=== PATIENT | male | born 2005 | race African-American/Black ===

== ENCOUNTER → 2024-11-08 10:17 | Outpatient (BNVA) | payer OTHER, SELFPAY | PROVIDERS: Visit Provider Physician Assistant Medical | DX: S80.01XA Contusion of right knee, initial encounter (principal); S60.414A Abrasion of right ring finger, initial encounter; Y00.XXXA Assault by blunt object, initial encounter | CPT/HCPCS: 99202 ==

== ENCOUNTER → 2024-11-10 11:15 | Outpatient (BNVA) | payer OTHER, SELFPAY | PROVIDERS: Visit Provider Physician Assistant Medical | DX: S80.01XA Contusion of right knee, initial encounter (principal); S60.414A Abrasion of right ring finger, initial encounter; Y00.XXXA Assault by blunt object, initial encounter; Z02.79 Encounter for issue of other medical certificate | CPT/HCPCS: 99213 ==